=== PATIENT | female | born 1970 | race Caucasian/White ===

== ENCOUNTER → 2016-05-12 | Outpatient (CLI) | payer OTHER ==
--- NOTE | 2016-05-12 19:35 | DX ---
Bilateral Sternoclavicular Joints, 3 Views Total dated May 12, 2016 Indication: Pain and swelling of the right sternoclavicular joint. Technique: AP and bilateral oblique views. Findings: The normally mineralized bones are anatomically aligned. Asymmetric osteoarthritis involves the right sternoclavicular joint evidenced by subchondral cysts and sclerosis. No bone lesion or fra cture. The left sternoclavicular joint is normal. Lung apices are clear. 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
== END ==
LOC: CIMAGING 16:26
PROVIDERS: ATTEND Internal Medicine Rheumatology
DX: M19.011 Primary osteoarthritis, right shoulder (principal)
CPT/HCPCS: 71130-PO

== ENCOUNTER → 2016-08-23 | Outpatient (CLI) | payer OTHER | LOC: FIMAGING 11:40 | DX: Z12.31 Encounter for screening mammogram for malignant neoplasm of breast (principal) | CPT/HCPCS: G0202 ==

== ENCOUNTER → 2017-08-29 | Outpatient (CLI) | payer OTHER | LOC: FIMAGING 08:11 | PROVIDERS: ATTEND Internal Medicine | DX: Z12.31 Encounter for screening mammogram for malignant neoplasm of breast (principal) ==

== ENCOUNTER → 2018-08-30 | Outpatient (CLI) | payer OTHER | LOC: FIMAGING 08:00 | PROVIDERS: ATTEND Internal Medicine | DX: Z12.31 Encounter for screening mammogram for malignant neoplasm of breast (principal) ==